=== PATIENT | female | born 1990 | race African-American/Black ===

== ENCOUNTER 2019-05-03 21:41 | Emergency (ER) | payer BC, OTHER ==
[~2019-05-03] VITALS: Ht 154.9 cm; Wt 77.0 kg
[2019-05-03 21:55] VITALS: BP 127/86
== END 2019-05-03 23:27 | disposition left against medical advice (07) ==
LOC: ER 21:41
DX: J02.9 Acute pharyngitis, unspecified (principal); Z53.21 Procedure and treatment not carried out due to patient leaving prior to being seen by health care provider